=== PATIENT | female | born 1985 | race Caucasian/White ===

== ENCOUNTER 2016-11-28 17:32 | Emergency (ER) | payer MEDICAID, OTHER ==
[~2016-11-28] VITALS: Ht 170.2 cm; Wt 130.7 kg
[~2016-11-28 17:32] MED LIST: ALPR0.5T6 PO; ASPI-621 PO; BUPR150T13 PO; CARI350T PO; CLON0.5T20; GABA300C10 PO; LISI-167 PO; LISI5TAB7 PO; METO50TA82 PO; OMEP-110 PO; OXYC-307 PO; PROP10TA PO; QUET400T6; TOPI50TA35; TRAZ50TA18 PO
[2016-11-28 18:28] LABS: HEMATOCRIT 41.4 % (34.6-47.8); WHITE BLOOD COUNT 8.8 x10^3/uL (3.4-10)
[2016-11-28] MEDS ORDERED: OXYcodone/APAP 10/325MG TABLET ONE (18:37)
[2016-11-28 18:40] LABS: BLOOD UREA NITROGEN 13 mg/dL (7-18)
[2016-11-28] MEDS ORDERED: OXYcodone/APAP 10/325MG TABLET PO ONE (19:00)
[2016-11-28 19:16] LABS: IS PT STATUS REG ER OR PRE ER? YES
[2016-11-28] MEDS ORDERED: KETOROLAC 30 MG/1 ML IM ONE (20:00)
[2016-11-28] MEDS ORDERED: KETOROLAC 30 MG/1 ML ONE (20:00)
[2016-11-28] MEDS ORDERED: HYDROmorphone 1 MG/ML, 1ML ONE ×2 (20:34→21:19)
[2016-11-28] MEDS ORDERED: HYDROmorphone 1 MG/ML, 1ML IM ONE ×2 (21:30)
[2016-11-28 21:51] LABS: IS PT STATUS REG ER OR PRE ER? YES
[2016-11-28 22:30] VITALS: BP 126/60
== END 2016-11-28 22:32 | disposition home or self-care (01) ==
LOC: ED 18:41
DX: R07.9 Chest pain, unspecified (principal); R00.2 Palpitations; R06.02 Shortness of breath; R42 Dizziness and giddiness; R51 Headache; I10 Essential (primary) hypertension; Z90.710 Acquired absence of both cervix and uterus
CPT/HCPCS: 36415; 71010; 80048; 82040; 84439; 84443; 84484; 85025; 85379; 85610; 85730; 93005; 96372; 99285; J1170; J1885

== ENCOUNTER 2020-04-05 11:43 | Emergency (ER) | payer SELFPAY ==
[~2020-04-05] VITALS: Ht 165.1 cm; Wt 125.1 kg
[~2020-04-05 11:43] MED LIST changes: -ALPR0.5T6 PO; +ALPR0.5T93 PO; -ASPI-621 PO; +ASPI81TA45 PO; -OXYC-307 PO; +OXYC-380 PO; -PROP10TA PO; +PROP10TA16 PO; -QUET400T6; +QUET400T7; -TRAZ50TA18 PO; +TRAZ50TA66 PO
[2020-04-05] MEDS ORDERED: SODIUM CHLORIDE FLUSH 10ML SYR IVF ONE (13:00)
[2020-04-05] MEDS ORDERED: ASPIRIN 81 MG TABLET CHEW PO ONE (13:00)
[2020-04-05] MEDS ORDERED: MORPHINE SULFATE 4 MG/ML, 1ML ONE ×2 (13:19→15:46)
[2020-04-05] MEDS ORDERED: ASPIRIN 81 MG TABLET CHEW ONE (13:19)
[2020-04-05] MEDS: MORPHINE SULFATE 4 MG/ML, 1ML IVPush PRN ×2 (13:23→15:49)
[2020-04-05 13:40] LABS: TROPONIN I < 0.015 ng/mL (0.000-0.045)
--- NOTE | 2020-04-05 13:46 | NUR ---
pt in bed with head of bed elevated and lights off in room for comfort. no signs or symptoms of acute distress noted respirations even and unlabored, states pain is down to 4/10 frmo 6/10. pt on cardiac cath technologist with call light at right hand and bed rails up bilaterally.pt denies need at this time
[2020-04-05 16:08] VITALS: BP 109/71
== END 2020-04-05 17:06 | disposition home or self-care (01) ==
LOC: ED 14:59
DX: R06.02 Shortness of breath (principal); R07.89 Other chest pain; R11.0 Nausea; I10 Essential (primary) hypertension
CPT/HCPCS: 36415; 71045; 83880; 84484; 93005; 99285; J2270

== ENCOUNTER 2020-08-19 21:44 | Emergency (ER) | payer SELFPAY ==
[~2020-08-19] VITALS: Ht 165.1 cm; Wt 126.0 kg
[~2020-08-19 21:44] MED LIST changes: -OXYC-380 PO; +OXYC-501 PO
--- NOTE | 2020-08-19 22:02 | NUR ---
PT PRESENTS TO ER FOR CHEST PAIN THAT STARTED TODAY, PALPITATIONS ALL DAY, PAIN AND HEAVINESS STARTED AN HOUR AGO, PT STATES HER CHEST FEELS HEAVY AND IS UNCOMFORTABLE, PT FEELS FATIGUED, PT STATES SHE FEELS PAIN FROM HER LEFT SIDED NECK TO THE LEFT CHEST TO LEFT ARM
[2020-08-19 22:35] LABS: BASOPHILS % (AUTO) 1 % (0-1); EOSINOPHILS % (AUTO) 1 % (1-7); LYMPHOCYTES % (AUTO) 41 % (22-44); MEAN CORPUSCULAR HEMOGLOBIN 31.3 pg (27.0-34.8); MEAN CORPUSCULAR HGB CONC 34.1 g/dL (32.4-35.8); MEAN PLATELET VOLUME 8.8 fL (7.4-10.4); MONOCYTES % (AUTO) 9 % (2-9); NEUTROPHILS % (AUTO) 49 % (42-75); PLATELET COUNT 223 x10^3/uL (130-400); RED BLOOD COUNT 4.28 x10^6/uL (3.82-5.3); RED CELL DISTRIBUTION WIDTH 12.8 % (9.6-15.2)
[2020-08-19 22:43] LABS: ALANINE AMINOTRANSFERASE 25 U/L (12-78); ANION GAP 7 mmol/L (5-15); CALCIUM 8.6 mg/dL (8.5-10.1); CHLORIDE 111 mmol/L (98-107); CREATININE 0.78 mg/dL (0.55-1.02)
[2020-08-19 22:48] LABS: ALKALINE PHOSPHATASE 52 U/L (45-117); BILIRUBIN,TOTAL 0.3 mg/dL (0.2-1.0); TOTAL PROTEIN 7.4 g/dL (6.4-8.2); TROPONIN I < 0.015 ng/mL (0.000-0.045)
[2020-08-19] MEDS ORDERED: KETOROLAC 30 MG/1 ML ONE (23:07)
[2020-08-19] MEDS ORDERED: KETOROLAC 30 MG/1 ML IVPush ONE (23:30)
[2020-08-19 23:54] VITALS: BP 113/77
== END 2020-08-19 23:56 | disposition home or self-care (01) ==
LOC: ED 23:10
DX: R07.89 Other chest pain (principal); R51.9 Headache, unspecified; R94.31 Abnormal electrocardiogram [ECG] [EKG]; I10 Essential (primary) hypertension; Z90.710 Acquired absence of both cervix and uterus; F17.210 Nicotine dependence, cigarettes, uncomplicated
CPT/HCPCS: 36415; 71045; 80053; 84484; 85025; 93005; 96374; 99285; J1885